=== PATIENT | male | born 1975 | race Two or more races ===

== ENCOUNTER 2017-01-10 10:10 | Emergency (ER) | payer OTHER ==
[~2017-01-10] VITALS: Ht 172.7 cm; Wt 86.0 kg
[~2017-01-10 10:10] MED LIST: INDO75CA PO
[2017-01-10 10:16] VITALS: BP 166/100
[2017-01-10] MEDS ORDERED: OXYcodone/APAP 5/325MG TABLET ONE (11:12)
[2017-01-10] MEDS ORDERED: KETOROLAC 30 MG/1 ML ONE (11:13)
[2017-01-10] MEDS ORDERED: COLCHICINE 0.6 MG TABLET PO ONE (11:30)
[2017-01-10] MEDS ORDERED: OXYcodone/APAP 5/325MG TABLET PO ONE (11:30)
[2017-01-10] MEDS ORDERED: KETOROLAC 30 MG/1 ML IM ONE (11:30)
== END 2017-01-10 12:18 | disposition home or self-care (01) ==
LOC: ED 12:12
DX: M13.862 Other specified arthritis, left knee (principal); M13.822 Other specified arthritis, left elbow; M10.9 Gout, unspecified
CPT/HCPCS: 96372; 99284; J1885; J7512

== ENCOUNTER 2017-08-29 14:04 | Emergency (ER) | payer OTHER ==
[~2017-08-29] VITALS: Ht 172.7 cm; Wt 93.7 kg
[~2017-08-29 14:04] MED LIST changes: -INDO75CA PO; +INDO75CA3 PO
[2017-08-29 14:49] VITALS: BP 169/113
[2017-08-29] MEDS ORDERED: HYDROmorphone 1 MG/ML, 1ML IM ONE (16:00)
[2017-08-29] MEDS ORDERED: KETOROLAC 30 MG/1 ML IM ONE (16:00)
[2017-08-29] MEDS ORDERED: COLCHICINE 0.6 MG TABLET PO ONE (16:00)
[2017-08-29] MEDS ORDERED: KETOROLAC 30 MG/1 ML ONE (16:15)
[2017-08-29] MEDS ORDERED: HYDROmorphone 2 MG/ML, 1ML ONE (16:20)
== END 2017-08-29 17:47 | disposition home or self-care (01) ==
LOC: ED 17:35
DX: M25.561 Pain in right knee (principal); M10.00 Idiopathic gout, unspecified site
CPT/HCPCS: 73564; 96372; 99284; J1170; J1885

== ENCOUNTER 2017-09-20 17:41 | Emergency (ER) | payer OTHER ==
[~2017-09-20] VITALS: Ht 172.7 cm; Wt 87.5 kg
[2017-09-20] MEDS ORDERED: HYDROcodone/APAP 10/325 MG TABLET ONE (20:09)
[2017-09-20] MEDS ORDERED: IBUPROFEN 200 MG TABLET ONE (20:09)
[2017-09-20 20:16] LABS: HCT (SEDRATE) 48.7 % (39.2-51.8)
[2017-09-20 20:17] LABS: BASOPHILS # (AUTO) 0.01 x10^3/uL (0-0.1); BASOPHILS % (AUTO) 0 % (0-1); EOSINOPHILS # (AUTO) 0.04 x10^3/uL (0-0.4); EOSINOPHILS % (AUTO) 0 % (1-7); LYMPHOCYTES # (AUTO) 2.33 x10^3/uL (1-3.4); LYMPHOCYTES % (AUTO) 17 % (22-44); MD NO; MEAN CORPUSCULAR HEMOGLOBIN 30.6 pg (27.5-34.5); MEAN CORPUSCULAR HGB CONC 34.1 g/dL (33.2-36.2); MEAN CORPUSCULAR VOLUME 89.8 fL (81-97); MEAN PLATELET VOLUME 8.3 fL (7.4-10.4); MONOCYTES # (AUTO) 1.31 x10^3/uL (0.2-0.8); MONOCYTES % (AUTO) 9 % (2-9); NEUTROPHILS # (AUTO) 10.28 x10^3/uL (1.8-6.8); NEUTROPHILS % (AUTO) 74 % (42-75); PLATELET COUNT 442 x10^3/uL (130-400); RED BLOOD COUNT 5.41 x10^6/uL (4.38-5.82); RED CELL DISTRIBUTION WIDTH 12.6 % (9.4-14.8)
[2017-09-20 20:27] LABS: CHLORIDE 99 mmol/L (98-107)
[2017-09-20 20:28] LABS: ANION GAP 9 mmol/L (5-15); CALCIUM 9.4 mg/dL (8.5-10.1); CREATININE 1.01 mg/dL (0.7-1.3)
[2017-09-20] MEDS ORDERED: IBUPROFEN 200 MG TABLET PO ONE (20:30)
[2017-09-20] MEDS ORDERED: HYDROcodone/APAP 10/325 MG TABLET PO ONE (20:30)
[2017-09-20] MEDS ORDERED: LIDOCAINE 1%, 10ML ONE (21:00)
[2017-09-20] MEDS ORDERED: LIDOCAINE 1%, 20ML SQ ONE (21:00)
[2017-09-20] MEDS ORDERED: HYDROmorphone 2 MG/ML, 1ML ONE (23:30)
[2017-09-20] MEDS ORDERED: ONDANSETRON 2MG/ML, 2ML ONE (23:30)
[2017-09-21] MEDS ORDERED: ONDANSETRON 2MG/ML, 2ML IVPush ONE
[2017-09-21] MEDS ORDERED: LIDOCAINE 1%, 10ML ONE (01:19)
[2017-09-21] MEDS ORDERED: LIDOCAINE 1%, 10ML INFIL ONE (02:00)
[2017-09-21] MEDS ORDERED: HYDROmorphone 2 MG/ML, 1ML ONE (02:08)
[2017-09-21] MEDS ORDERED: HYDROmorphone 2 MG/ML, 1ML IV ONE ×2 (02:30)
[2017-09-21] MEDS ORDERED: HYDROmorphone 1 MG/ML, 1ML IM ONE (02:30)
[2017-09-21] MEDS ORDERED: HYDROmorphone 1 MG/ML, 1ML IV ONE (02:30)
[2017-09-21 03:02] VITALS: BP 143/91
== END 2017-09-21 03:44 | disposition home or self-care (01) ==
LOC: ED 23:59
DX: M25.461 Effusion, right knee (principal); M13.10 Monoarthritis, not elsewhere classified, unspecified site; F41.9 Anxiety disorder, unspecified
CPT/HCPCS: 20610; 36415; 73721; 80048; 82040; 84550; 85025; 85651; 96374; 96375; 96376; 99285; J1170; J2405; J3490

== ENCOUNTER 2017-10-18 12:03 | Emergency (ER) | payer OTHER ==
[~2017-10-18] VITALS: Ht 172.7 cm; Wt 86.7 kg
[2017-10-18] MEDS ORDERED: ASPIRIN 81 MG TABLET CHEW PO ONE (13:30)
[2017-10-18 13:49] LABS: BASOPHILS # (AUTO) 0.03 x10^3/uL (0-0.1); BASOPHILS % (AUTO) 0 % (0-1); EOSINOPHILS # (AUTO) 0.09 x10^3/uL (0-0.4); EOSINOPHILS % (AUTO) 1 % (1-7); LYMPHOCYTES # (AUTO) 2.61 x10^3/uL (1-3.4); LYMPHOCYTES % (AUTO) 27 % (22-44); MD NO; MEAN CORPUSCULAR HEMOGLOBIN 30.5 pg (27.5-34.5); MEAN CORPUSCULAR HGB CONC 33.6 g/dL (33.2-36.2); MEAN CORPUSCULAR VOLUME 90.8 fL (81-97); MEAN PLATELET VOLUME 8.7 fL (7.4-10.4); MONOCYTES # (AUTO) 0.76 x10^3/uL (0.2-0.8); MONOCYTES % (AUTO) 8 % (2-9); NEUTROPHILS # (AUTO) 6.14 x10^3/uL (1.8-6.8); NEUTROPHILS % (AUTO) 64 % (42-75); PLATELET COUNT 345 x10^3/uL (130-400); RED CELL DISTRIBUTION WIDTH 13.7 % (9.4-14.8)
[2017-10-18] MEDS ORDERED: ASPIRIN 81 MG TABLET CHEW ONE (13:54)
[2017-10-18 14:02] LABS: ALBUMIN 3.7 g/dL (3.4-5.0); ANION GAP 9 mmol/L (5-15); CALCIUM 8.8 mg/dL (8.5-10.1); CHLORIDE 106 mmol/L (98-107)
[2017-10-18 14:11] LABS: ALANINE AMINOTRANSFERASE 118 U/L (12-78); ALKALINE PHOSPHATASE 100 U/L (45-117); BILIRUBIN,TOTAL 0.6 mg/dL (0.2-1.0); TOTAL PROTEIN 7.7 g/dL (6.4-8.2); TROPONIN I < 0.015 ng/mL (0.000-0.045)
[2017-10-18 14:53] VITALS: BP 112/94
== END 2017-10-18 14:59 | disposition home or self-care (01) ==
LOC: ED 14:06
DX: R07.89 Other chest pain (principal)
CPT/HCPCS: 36415; 71045; 80053; 83880; 84484; 85025; 93005; 99285

== ENCOUNTER 2018-04-15 20:06 | Emergency (ER) | payer OTHER ==
[~2018-04-15] VITALS: Ht 172.7 cm; Wt 87.0 kg
[2018-04-15] MEDS ORDERED: IBUPROFEN 800 MG TABLET PO STA (20:38)
[2018-04-15] MEDS ORDERED: HYDROcodone/APAP 5/325 TABLET PO STA (20:38)
[2018-04-15] MEDS ORDERED: DIAZEPAM 5 MG TABLET ONE (20:39)
[2018-04-15] MEDS ORDERED: IBUPROFEN 200 MG TABLET ONE (20:40)
[2018-04-15] MEDS ORDERED: HYDROcodone/APAP 5/325 TABLET ONE (20:40)
[2018-04-15] MEDS ORDERED: DIAZEPAM 5 MG TABLET PO ONE (21:00)
[2018-04-15 22:11] VITALS: BP 133/74
== END 2018-04-15 22:14 | disposition home or self-care (01) ==
LOC: ED 22:08
DX: S39.012A Strain of muscle, fascia and tendon of lower back, initial encounter (principal); W01.0XXA Fall on same level from slipping, tripping and stumbling without subsequent striking against object, initial encounter; Y93.89 Activity, other specified; Y92.009 Unspecified place in unspecified non-institutional (private) residence as the place of occurrence of the external cause; Y99.8 Other external cause status
CPT/HCPCS: 72072; 72110; 99284

== ENCOUNTER 2018-06-05 11:42 | Emergency (ER) | payer OTHER ==
[~2018-06-05] VITALS: Ht 172.7 cm; Wt 88.4 kg
[2018-06-05 12:52] LABS: BASOPHILS # (AUTO) 0.03 x10^3/uL (0-0.1); BASOPHILS % (AUTO) 0 % (0-1); EOSINOPHILS # (AUTO) 0.09 x10^3/uL (0-0.4); EOSINOPHILS % (AUTO) 1 % (1-7); LYMPHOCYTES # (AUTO) 2.63 x10^3/uL (1-3.4); LYMPHOCYTES % (AUTO) 36 % (22-44); MD NO; MEAN CORPUSCULAR HEMOGLOBIN 31.1 pg (27.5-34.5); MEAN CORPUSCULAR HGB CONC 34.2 g/dL (33.2-36.2); MEAN CORPUSCULAR VOLUME 90.8 fL (81-97); MEAN PLATELET VOLUME 8.6 fL (7.4-10.4); MONOCYTES # (AUTO) 0.57 x10^3/uL (0.2-0.8); MONOCYTES % (AUTO) 8 % (2-9); NEUTROPHILS # (AUTO) 4.05 x10^3/uL (1.8-6.8); NEUTROPHILS % (AUTO) 55 % (42-75); PLATELET COUNT 358 x10^3/uL (130-400); RED BLOOD COUNT 4.96 x10^6/uL (4.38-5.82); RED CELL DISTRIBUTION WIDTH 12.8 % (9.4-14.8)
[2018-06-05 14:32] LABS: ALANINE AMINOTRANSFERASE 55 U/L (12-78); ANION GAP 9 mmol/L (5-15); CALCIUM 8.8 mg/dL (8.5-10.1); CHLORIDE 109 mmol/L (98-107)
[2018-06-05 14:35] LABS: ALKALINE PHOSPHATASE 95 U/L (45-117); BILIRUBIN,TOTAL 0.8 mg/dL (0.2-1.0); CREATININE 1.03 mg/dL (0.7-1.3); TOTAL PROTEIN 8.2 g/dL (6.4-8.2)
[2018-06-05] MEDS ORDERED: INDO75CA3 PO (14:37)
[2018-06-05] MEDS ORDERED: OMNIPAQUE 350 MG/ML, 100ML BOTTLE ONE (15:22)
[2018-06-05 15:24] LABS: MICROSCOPIC NOT IND
[2018-06-05 15:34] LABS: CULTURE INDICATED? NO
[2018-06-05 16:50] VITALS: BP 161/97
== END 2018-06-05 16:52 | disposition home or self-care (01) ==
LOC: ED 16:45
DX: R10.31 Right lower quadrant pain (principal); M19.90 Unspecified osteoarthritis, unspecified site
CPT/HCPCS: 36415; 74177; 80053; 81003; 83690; 85025; 99285; Q9967

== ENCOUNTER 2019-04-10 17:45 | Emergency (ER) | payer BC, OTHER ==
[~2019-04-10] VITALS: Ht 170.2 cm; Wt 88.3 kg
[2019-04-10 17:51] VITALS: BP 160/105
== END 2019-04-10 19:29 | disposition home or self-care (01) ==
LOC: ED 19:23
DX: M13.142 Monoarthritis, not elsewhere classified, left hand (principal); M10.9 Gout, unspecified
CPT/HCPCS: 36415; 73110; 80048; 82040; 84550; 85025; 96372; 99284; J1885